=== PATIENT | female | born 1985 | race American Indian/Alaskan Native ===

== ENCOUNTER 2017-05-11 06:10 | Day surgery (SDC) | payer OTHER ==
[2017-05-11] MEDS ORDERED: DIPRIVAN 10 MG/ML IV ONE ×2 (07:38→08:52)
--- NOTE | 2017-05-11 08:04 | Anesthesia Consultation ---
Anesthesia Consult and Med Hx Date of service: 05/11/17 - Airway Anesthetic Teeth Evaluation: Good ROM Head & Neck: Adequate Mental/Hyoid Distance: Adequate Mallampati Class: Class II Intubation Access Assessment: Probably Good - Pulmonary Exam CTA: Yes - Cardiac Exam Cardiac Exam: RRR - Pre-Operative Health Status ASA Pre-Surgery Classification: ASA3 Proposed Anesthetic Plan: MAC - Pulmonary Hx Asthma: Yes (inhaler used 2 months ago) Hx Sleep Apnea: Yes (cpap) - Cardiovascular System Hx Hypertension: Yes - Endocrine Hx Thyroid Disease: No (PCOS) - Other Systems Hx Obesity: Yes - Additional Comments Anesthesia Medical History Comments: NAC
--- NOTE | 2017-05-11 08:04 | Anesthesia Day of Surgery ---
Anesthesia Day of Surgery - Day of Surgery Patient Examined: Yes Patient H&P Reviewed: Yes Patient is NPO: Yes
[2017-05-11] MEDS ORDERED: NACL 0.9% 1000 ML 1,000 ML IV SCH (09:00)
--- NOTE | 2017-05-11 09:15 | Discharge Summary ---
Providers - Providers Attending physician: LIZABETH WILL Primary care physician: JAMES ECHAVARRIA Hospitalization Procedures: egd Hospital course: 32 y.o. F presented to endoscopy for EGD for eval for upcoming bariatric surgery and hx of dyspepsia. Pt tolerated the procedure well. Disposition: DC-01 TO HOME OR SELFCARE Core Measure Documentation - Palliative Care Palliative Care/ Comfort Measures: Not Applicable - Core Measures Any of the following diagnoses?: none Exam - Physical Exam Narrative exam: no change from prior - Constitutional Vitals: Temp Pulse Resp BP Pulse Ox 98.3 F 75 12 160/102 96 05/11/17 08:15 05/11/17 08:15 05/11/17 08:15 05/11/17 08:15 05/11/17 08:15 Plan Activity: other (no driving today) Additional Instructions: follow up for your surgery Follow up with: JAMES ECHAVARRIA MD [Primary Care Provider] - 7 Days
--- NOTE | 2017-05-11 09:17 | Operative Report ---
Operative Report Operative Report: OPERATIVE REPORT - EGD DATE 05/11/17 SURGERY: Upper endoscopy. SURGEON: Dr. Nico M.D. [employer] DEVELOPER: Dr. Katina Chawla DO PRE OP DX: dyspepsia POST OP DX: small hiatal hernia TYPE OF ANESTHESIA: MAC. ESTIMATED BLOOD LOSS: None. COMPLICATIONS: None. SPECIMENS REMOVED: None. FINDINGS: 1. Small hiatal hernia. 2. Otherwise, normal esophagus, stomach and first portion of duodenum. INDICATIONS:INDICATION FOR PROCEDURE: Patient is a 32-year-old female with a long history of morbid obesity. She is planned to have a weight loss procedure and is here for preoperative planning EGD to ensure there are no anatomical abnormalities of her stomach and to evaluate dyspepsia. PROCEDURE DETAILS: After consent was reviewed, patient was taken back to the operating room where patient was placed in the left lateral decubitus position and a bite block was placed in the mouth. After a time-out was called, MAC anesthesia was initiated. I then passed the endoscope into her oropharynx, into her esophagus, visualized the entire esophagus, which was all within normal limits. I then visualized the stomach and the first portion of the duodenum and there were no abnormalities I could clearly visualize. I then retroflexed the scope in the stomach and visualized the hiatus and I could see a small hiatal hernia. I then desufflated the stomach and removed the endoscope. Patient tolerated procedure well and was transferred to recovery room in good and stable condition.
--- NOTE | 2017-05-11 09:31 | Post Anesthesia Evaluation ---
- Post Anesthesia Evaluation Patient Participated: Yes Airway Patent: Yes Stable Respiratory Function: Yes Nausea/Vomiting: No Temp > 96.8F: Yes Pain Manageable: Yes Adequeate Hydration: Yes Anesthesia Complications: No
[2017-05-11] MEDS ORDERED: NACL P/F VIAL (10 ML) ONE (10:00)
[2017-05-11] MEDS ORDERED: ROBINUL ONE (10:00)
[2017-05-11] MEDS ORDERED: NEO SYNEPHRINE/NS Syringe(OR USE) IV ONE (10:00)
[2017-05-11] MEDS ORDERED: XYLOCAINE MPF 2% ONE ×2 (10:00)
[2017-05-11 10:25] VITALS: BP 142/86
== END 2017-05-11 06:11 | disposition home or self-care (01) ==
LOC: GIO 06:10
PROVIDERS: ATTEND Specialist
DX: K30 Functional dyspepsia (principal); K44.9 Diaphragmatic hernia without obstruction or gangrene; I10 Essential (primary) hypertension; J45.909 Unspecified asthma, uncomplicated; E03.9 Hypothyroidism, unspecified; E66.01 Morbid (severe) obesity due to excess calories; Z68.43 Body mass index [BMI] 50.0-59.9, adult; Z98.890 Other specified postprocedural states; Z88.0 Allergy status to penicillin; Z88.5 Allergy status to narcotic agent; Z79.899 Other long term (current) drug therapy; Z82.49 Family history of ischemic heart disease and other diseases of the circulatory system; Z83.3 Family history of diabetes mellitus
CPT/HCPCS: 43235; 81025; J2370; J2704; J7030